=== PATIENT | female | born 1995 | race Caucasian/White ===

== ENCOUNTER 2021-05-31 21:51 | Emergency (ER) | payer BC ==
[~2021-05-31] VITALS: Ht 162.6 cm; Wt 65.9 kg
[2021-05-31 22:09] VITALS: TEMP 98.8
[2021-05-31 23:42] LABS: COLLECTION METHOD CLEAN CATCH
[2021-05-31 23:48] LABS: MUCOUS Present (NOT PRESENT); PH 5 (5-8); SQUAMOUS EPITHELIAL 0-2 /hpf (0-10); URINE APPEARANCE Clear (CLEAR/HAZY); URINE BACTERIA None Seen /hpf (NONE SEEN); URINE BILIRUBIN Negative (NEGATIVE); URINE BLOOD Negative (NEGATIVE); URINE COLOR Yellow (YELLOW); URINE GLUCOSE Negative (NEGATIVE); URINE KETONE Negative (NEGATIVE); URINE LEUKOCYTE ESTERASE Negative (NEGATIVE); URINE NITRATE Negative (NEGATIVE); URINE PROTEIN(semi-quant) Negative (NEGATIVE); URINE RBC None Seen /hpf (0-2); URINE UROBILINOGEN Negative (NEGATIVE)
[2021-06-01 01:49] VITALS: BP 129/76; PULSE 70
== END 2021-06-01 01:49 | disposition home or self-care (01) ==
LOC: COL.ER 21:51
PROVIDERS: Nurse Practitioner
DX: R11.0 Nausea (principal); R07.9 Chest pain, unspecified; Z20.822 Contact with and (suspected) exposure to COVID-19